=== PATIENT | female | born 1990 | race Caucasian/White ===

== ENCOUNTER 2023-09-10 12:05 | Outpatient (REF) | payer MEDICARE, MEDICAID, SELFPAY ==
[2023-09-10 13:21] LABS: MANUAL DIFF FLAG NO
--- NOTE | 2023-09-10 13:24 | ECG_ITS ---
Test Reason : T Blood Pressure : / mmHG Vent. Rate : 089 BPM Atrial Rate : 089 BPM P-R Int : 166 ms QRS Dur : 096 ms QT Int : 364 ms P-R-T Axes : 048 012 080 degrees QTc Int : 442 ms Normal sinus rhythm Nonspecific T wave abnormality Abnormal ECG No previous ECGs available Referred By: Joe Wilson Electronically Signed By:SUSANA SIMON MD
[2023-09-10 14:11] LABS: Basophils Percent Auto 0.3 % (0-2); Eosinophils Absolute Auto 0.4 X10*3/uL (0.0-0.4); Eosinophils Percent Auto 3.7 % (0-4); Hematocrit 43.7 % (37.0-47.0); Imm Gran Abs Auto 0.04 X10*3/uL (0.00-0.03); Imm Gran Pct Auto 0.3 % (0.0-0.4); Lymphocytes Absolute Auto 2.2 X10*3/uL (1.2-4.9); Lymphocytes Percent Auto 19.3 % (20-40); Mean Corpuscular Volume 93.8 fL (80.0-98.0); Mean Platelet Volume 9.9 fL (9.4-12.3); Monocytes Absolute Auto 0.4 X10*3/uL (0.1-1.2); Monocytes Percent Auto 3.3 % (2-11); Neutrophils Absolute Auto 8.4 x10*3/uL (2.0-8.3); Neutrophils Percent Auto 73.1 % (45-73); Platelet Count 307 X10*3/uL (160-400); Red Blood Count 4.66 X10*6/uL (4.20-5.50); Red Cell Distribution Width 15.1 % (11.0-16.0); White Blood Count 11.5 X10*3/uL (4.8-10.8)
[2023-09-10 15:01] LABS: Alanine Aminotransferase 34 U/L (0-31); Albumin Level 4.3 g/dL (3.5-5.0); Alkaline Phosphatase 118 U/L (39-117); Anion Gap 11 (12-20); Aspartate Amino Transferase 40 U/L (5-31); Bilirubin Total 0.5 mg/dL (0.0-1.0); Blood Urea Nitrogen 6 mg/dL (9-16); Carbon Dioxide 22 mmol/L (22-29); Chloride 107 mmol/L (96-108); Estimated Glomerular Filt Rate > 60; Glucose Random 104 mg/dL (60-115); Sodium 136 mmol/L (135-145); Total Protein 7.6 g/dL (6.5-8.0)
[2023-09-10 15:05] LABS: TSH reflex Free T4 2.53 uIU/mL (0.32-4.0)
== END 2023-09-10 12:06 | disposition home or self-care (01) ==
LOC: HO.LAB 12:05
PROVIDERS: PCP Internal Medicine; Visit Provider Psychiatry & Neurology Psychiatry
DX: Z01.818 Encounter for other preprocedural examination (principal); F31.4 Bipolar disorder, current episode depressed, severe, without psychotic features; F41.1 Generalized anxiety disorder; F43.10 Post-traumatic stress disorder, unspecified; Z79.899 Other long term (current) drug therapy
CPT/HCPCS: 36415; 80053; 84443; 85025; 93005; 99202

== ENCOUNTER 2023-09-10 12:05 | Outpatient (AMB) | payer MEDICARE, MEDICAID, SELFPAY ==
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
== END 2023-09-10 13:06 | disposition home or self-care (01) ==
LOC: HO.HOP 12:05
PROVIDERS: PCP Internal Medicine; Visit Provider Psychiatry & Neurology Psychiatry
DX: F31.4 Bipolar disorder, current episode depressed, severe, without psychotic features (principal); F43.10 Post-traumatic stress disorder, unspecified; I10 Essential (primary) hypertension
CPT/HCPCS: 99205

== ENCOUNTER → 2023-09-10 13:24 | Outpatient (BNV) | payer MEDICARE, MEDICAID, SELFPAY | PROVIDERS: PCP Internal Medicine; Visit Provider Internal Medicine Cardiovascular Disease | DX: R94.31 Abnormal electrocardiogram [ECG] [EKG] (principal) | CPT/HCPCS: 93010 ==

== ENCOUNTER 2023-09-19 08:07 | Day surgery (SDC) | payer MEDICARE, MEDICAID, SELFPAY ==
[2023-09-19] VITALS (8 sets, daily range): BP systolic 137–167; BP diastolic 84–108; PULSE 97–112; RESP 12–20; TEMP 36.4–37.5; O2SAT 92–97; BMI 47.1
[2023-09-19 08:30] LABS: UPreg QC Valid YES; Urine Pregnancy NEGATIVE (NEGATIVE)
--- NOTE | 2023-09-19 08:41 | HO.ANESPROP2 ---
[facility] Active Problems Active Problems: All Active Problems (Updated 09/11/23 @ 17:11 by Joe Wilson MD) Post traumatic stress disorder (PTSD) (Acute) Hypertension (Acute) Pre-op evaluation (Acute) Bipolar 1 disorder, depressed, severe (Acute) Past Medical History Medical History (Updated 09/11/23 @ 17:11 by Joe Wilson MD) Hypertension Family History Family history of problems with anesthesia: No Surgical History History of Problems with Anesthesia: No Social History Social History Advance Directives: No Advance Directives Information Provided: Yes Meds Allergies Allergy/AdvReac Type Severity Reaction Status Date / Time shellfish derived Allergy Severe Anaphylaxis Verified 09/10/23 12:54 Active Medications: Current Medications Lactated Ringer's (Lr) 1,000 mls @ 50 mls/hr IVCONT .Q20H JONATAN Scopolamine (Scopolamine 1.5 Mg Patch.Td.3) 1.5 mg TRANSDERMA PREOP ONE Stop: 09/19/23 08:41 Home Medications Medication Instructions Recorded Confirmed Last Taken Type amlodipine 10 mg tablet 10 mg PO DAILY 09/11/23 09/11/23 Unknown History cariprazine 4.5 mg capsule 4.5 mg PO DAILY 09/11/23 09/11/23 Unknown History (Vraylar) duloxetine 60 mg capsule,delayed 60 mg PO DAILY 09/11/23 09/11/23 Unknown History release lithium carbonate 300 mg mg PO 09/11/23 09/11/23 Unknown History tablet,extended release quetiapine 200 mg tablet mg PO TID 09/11/23 09/11/23 Unknown History clonazepam 1 mg tablet 1 mg PO TID 09/18/23 09/18/23 Unknown History Exam Height,Weight and Vital Signs: Height 5 ft 7 in Weight 136.531 kg Last Vital Signs Temp 97.5 F 09/19/23 08:27 Pulse 112 H 09/19/23 08:27 Resp 20 09/19/23 08:27 BP 147/93 H 09/19/23 08:27 Pulse Ox 96 09/19/23 08:27 O2 Del Method Room Air 09/19/23 08:27 Pertinent Lab Results Pertinent Lab Results: Laboratory Tests 09/19/23 08:15 Urine Test NEGATIVE Airway Mallampati Class: III TM Dist: >3cm Neck ROM: Full Heart: rrr Lungs: cta Assessment and Plan Assessment Anesthesia Assessment: Anesthesia Plan Discussed and Chart Reviewed Final Anesthetic Review Family History of Problems with Anesthesia: No History of Problems with Anesthesia: No NPO: Yes ASA Class: III Final Preanesthetic Review: No Changes in Pt Med Stat, Meds/Allgs Chart Reviewed and Consent Obtained/Reviewed Patient Risk: Intermediate Procedure Risk: Intermediate Anesthetic Plan Anesthetic Plan: GA Disposition: Standard PACU
[2023-09-19] MEDS: Scopolamine 1.5 MG PATCH.TD.3 TRANSDERMA (08:45)
--- NOTE | 2023-09-19 09:13 | MHC.SHP ---
Pre-Procedural Eval Section A - 24 Hr Update-Section A only Date of Service: 09/19/23 Changes since office visit: Yes Changes in Medication and Yes Patient answered all questions; No Cold of Flu in the past 2 weeks and No New Medical Problems The patient has been examined within 24 hours of the surgical procedure. The History & Physical has been completed within 30 days and I have reviewed it.: Yes Section B - Complete if H&P > 30 days Chief Complaint: Major depressive disorder, recurrent, severe with Details of Present Illness: no change in medical or cognitive status Relevant Social History: None Present Medications: see Short Stay Collaborative assessment History of Previous Operations: No relevant previous surgery (ect) Allergies: Allergies Allergy/AdvReac Type Severity Reaction Status Date / Time shellfish derived Allergy Severe Anaphylaxis Verified 09/10/23 12:54 Review of Systems Sugical H&P ROS: Negative: Cardiovascular and Respiratory and Yes, Specify: Constitution (fatigue clouding) and Psychiatric (depression passive si at times) Exam Surgical H&P Exam: Normal: Heart, Normal: Lungs and Normal: Neurological Plan Diagnosis/Plan: Unchanged I have reviewed the history and physical and performed a pertinent physical examination on my patient. No changes have occurred unless specified. Time Spent With Patient Time: Total time managing care of this patient today ____ minutes.
--- NOTE | 2023-09-19 10:16 | P.PCN_ITS ---
ECT Procedure Note Diagnosis/Treatment Date of Service: 09/19/23 Diagnosis: Bipolar disorder Current Treatment Number: 1 Interval Clinical Notes: pt able to give infirmed consent records reviewed from [facility] ;rosendaium carlosonapin held night prior required bilateral tx last yr at [facility] pt tolerated first ect but needs inc program 0.5 ? change BT required LMA number 4 post ect Time: Total time managing care of this patient today ____ minutes. ECT Settings Device: THYMATRON DGx Electrode Placement: Rt temporal/ Lt frontal Program/Pulse Width: 0.25 Energy Percent: 100 Seizure Duration By EEG (in seconds): 12 Medications Administration General Anesthetic: Methohexital (130) Muscle Relaxant: Succinylcholine (140) Ancillary Medications Analgesics: Torodol - Pre ECT Anti-emetics: Zofran - Pre ECT Airway Management Airway Management: LMA Treatment Recommendations Electrode Placement: Bitemporal Program/Pulse Width: 0.50 Energy Percent: 100
[2023-09-19] MEDS: Acetaminophen 325 MG TABLET 650 MG PO (10:19)
== END 2023-09-19 10:55 | disposition home or self-care (01) ==
PROVIDERS: PCP Internal Medicine; Visit Provider Psychiatry & Neurology Psychiatry
PROC: (CPT 90870; principal; 2023-09-19 10:00)
DX: F33.3 Major depressive disorder, recurrent, severe with psychotic symptoms (principal); F43.10 Post-traumatic stress disorder, unspecified; I10 Essential (primary) hypertension
CPT/HCPCS: 81025; 90870; J0330; J1885; J2250; J2405; J2704

== ENCOUNTER → 2023-09-19 08:07 | Outpatient (BNV) | payer MEDICARE, MEDICAID, SELFPAY | PROVIDERS: PCP Internal Medicine; Visit Provider Psychiatry & Neurology Psychiatry | DX: F33.3 Major depressive disorder, recurrent, severe with psychotic symptoms (principal) | CPT/HCPCS: 90870 ==

== ENCOUNTER 2023-09-22 05:52 | Day surgery (SDC) | payer MEDICARE, MEDICAID, SELFPAY ==
[2023-09-22] VITALS (7 sets, daily range): BP systolic 135–159; BP diastolic 88–107; PULSE 100–114; RESP 16–20; TEMP 36.4–37.1; O2SAT 94–97; BMI 47.1
--- NOTE | 2023-09-22 06:46 | P.CONAN_ITS ---
[facility] Active Problems Active Problems: All Active Problems (Updated 09/11/23 @ 17:11 by Joe Wilson MD) Post traumatic stress disorder (PTSD) (Acute) Hypertension (Acute) Pre-op evaluation (Acute) Bipolar 1 disorder, depressed, severe (Acute) Past Medical History Medical History (Updated 09/11/23 @ 17:11 by Joe Wilson MD) Hypertension Family History Family history of problems with anesthesia: No Surgical History History of Problems with Anesthesia: No Social History Social History Advance Directives: No Advance Directives Information Provided: Yes Meds Allergies Allergy/AdvReac Type Severity Reaction Status Date / Time shellfish derived Allergy Severe Anaphylaxis Verified 09/10/23 12:54 Home Medications Medication Instructions Recorded Confirmed Last Taken Type amlodipine 10 mg tablet 10 mg PO DAILY 09/11/23 09/11/23 Unknown History cariprazine 4.5 mg capsule 4.5 mg PO DAILY 09/11/23 09/11/23 Unknown History (Vraylar) duloxetine 60 mg capsule,delayed 60 mg PO DAILY 09/11/23 09/11/23 Unknown History release lithium carbonate 300 mg mg PO 09/11/23 09/11/23 Unknown History tablet,extended release quetiapine 200 mg tablet mg PO TID 09/11/23 09/11/23 Unknown History clonazepam 1 mg tablet 1 mg PO TID 09/18/23 09/18/23 Unknown History Exam Airway Mallampati Class: II (thick neck) TM Dist: >3cm Neck ROM: Full Heart: rrr Lungs: cta Assessment and Plan Assessment Anesthesia Assessment: Anesthesia Plan Discussed and Chart Reviewed Final Anesthetic Review Family History of Problems with Anesthesia: No History of Problems with Anesthesia: No NPO: Yes ASA Class: III Final Preanesthetic Review: No Changes in Pt Med Stat, Meds/Allgs Chart Reviewed and Consent Obtained/Reviewed Patient Risk: Intermediate Procedure Risk: Intermediate Anesthetic Plan Anesthetic Plan: GA Disposition: Standard PACU
--- NOTE | 2023-09-22 07:08 | MHC.SHP ---
Pre-Procedural Eval Section A - 24 Hr Update-Section A only Date of Service: 09/22/23 The patient is an INPATIENT: No Changes since office visit: No Cold of Flu in the past 2 weeks, No New Medical Problems, No Changes in Medication and No Patient answered all questions The patient has been examined within 24 hours of the surgical procedure. The History & Physical has been completed within 30 days and I have reviewed it.: Yes Section B - Complete if H&P > 30 days Chief Complaint: Major depressive disorder, recurrent, severe with Allergies: Allergies Allergy/AdvReac Type Severity Reaction Status Date / Time shellfish derived Allergy Severe Anaphylaxis Verified 09/10/23 12:54 Plan I have reviewed the history and physical and performed a pertinent physical examination on my patient. No changes have occurred unless specified. Time Spent With Patient Time: Total time managing care of this patient today ____ minutes.
--- NOTE | 2023-09-22 07:09 | HO.ECTPROC ---
ECT Procedure Note Diagnosis/Treatment Date of Service: 09/22/23 Diagnosis: Bipolar disorder Previous ECT Date: 09/19/23 Current Treatment Number: 2 Treatment: Series Interval Clinical Notes: The patient reported that she is still dysphoric, no changes on mental statuts. She complained of headache and muscle pain after the procedure. ECT done with bitemporal setting, no complications, she had a physical seizure for 12s, woke up well. I ordered Oxycodone 10 mg after the procedure when she woke up. Time: Total time managing care of this patient today __30__ minutes. ECT Settings Device: THYMATRON DGx Electrode Placement: Bitemporal Program/Pulse Width: 0.50 Energy Percent: 100 Seizure Duration By EEG (in seconds): 55 By Motor Observation (in seconds): 12 Medications Administration General Anesthetic: Methohexital (130) Muscle Relaxant: Succinylcholine (140) Ancillary Medications Analgesics: Torodol - Pre ECT Anti-emetics: Zofran - Pre ECT Miscillaneous Medications: Propofol (30) Airway Management Airway Management: LMA Treatment Recommendations No Changes Recommended: No change Notes: Probably she will need, on top of Succinylcoline, Roncuronium, she was not 100% relaxed, she had a physical seizure of 12 s but seizure activity unitl 56s. I am adding a dose of Oxycodone 10 mg after the procedure to prevent headaches. Pt Tolerated Procedure w/o Issue: Yes
[2023-09-22] MEDS: oxyCODONE HCl Immed Release 5 MG TABLET 10 MG PO (08:01)
[2023-09-22] MEDS: Scopolamine 1.5 MG PATCH.TD.3 TRANSDERMA (08:06)
== END 2023-09-22 08:39 | disposition home or self-care (01) ==
PROVIDERS: PCP Internal Medicine; Visit Provider Psychiatry & Neurology Psychiatry
PROC: (CPT 90870; principal; 2023-09-22 07:30)
DX: F31.32 Bipolar disorder, current episode depressed, moderate (principal); F43.10 Post-traumatic stress disorder, unspecified; I10 Essential (primary) hypertension; D72.829 Elevated white blood cell count, unspecified; R74.8 Abnormal levels of other serum enzymes; E78.5 Hyperlipidemia, unspecified; R73.03 Prediabetes; Z79.899 Other long term (current) drug therapy
CPT/HCPCS: 90870; J0330; J1885; J2405; J2704

== ENCOUNTER → 2023-09-22 05:52 | Outpatient (BNV) | payer MEDICARE, MEDICAID, SELFPAY | PROVIDERS: PCP Internal Medicine; Visit Provider Psychiatry & Neurology Psychiatry | DX: F33.3 Major depressive disorder, recurrent, severe with psychotic symptoms (principal) | CPT/HCPCS: 90870 ==

== ENCOUNTER 2023-09-24 05:54 | Day surgery (SDC) | payer MEDICARE, MEDICAID, SELFPAY ==
[2023-09-24] VITALS (7 sets, daily range): BP systolic 133–171; BP diastolic 96–107; PULSE 89–101; RESP 15–18; TEMP 36.6–36.7; O2SAT 95–97; BMI 47.1
--- NOTE | 2023-09-24 07:04 | HO.ANESPROP2 ---
[facility] Active Problems Active Problems: All Active Problems (Updated 09/11/23 @ 17:11 by Joe Wilson MD) Post traumatic stress disorder (PTSD) (Acute) Hypertension (Acute) Pre-op evaluation (Acute) Bipolar 1 disorder, depressed, severe (Acute) Past Medical History Medical History (Updated 09/11/23 @ 17:11 by Joe Wilson MD) Hypertension Family History Family history of problems with anesthesia: No Surgical History History of Problems with Anesthesia: No Social History Social History Advance Directives: No Advance Directives Information Provided: Yes Meds Allergies Allergy/AdvReac Type Severity Reaction Status Date / Time shellfish derived Allergy Severe Anaphylaxis Verified 09/10/23 12:54 Active Medications: Current Medications Lactated Ringer's (Lr) 1,000 mls @ 50 mls/hr IVCONT .Q20H JONATAN Home Medications Medication Instructions Recorded Confirmed Last Taken Type amlodipine 10 mg tablet 10 mg PO DAILY 09/11/23 09/11/23 Unknown History cariprazine 4.5 mg capsule 4.5 mg PO DAILY 09/11/23 09/11/23 Unknown History (Vraylar) duloxetine 60 mg capsule,delayed 60 mg PO DAILY 09/11/23 09/11/23 Unknown History release lithium carbonate 300 mg mg PO 09/11/23 09/11/23 Unknown History tablet,extended release quetiapine 200 mg tablet mg PO TID 09/11/23 09/11/23 Unknown History clonazepam 1 mg tablet 1 mg PO TID 09/18/23 09/18/23 Unknown History Exam Height,Weight and Vital Signs: Height 5 ft 8 in Weight 140.614 kg Last Vital Signs Temp 98.1 F 09/24/23 06:40 Pulse 92 09/24/23 06:40 Resp 15 09/24/23 06:40 BP 143/96 H 09/24/23 06:40 Pulse Ox 96 09/24/23 06:40 O2 Del Method Room Air 09/24/23 06:40 Airway Mallampati Class: II TM Dist: >3cm Neck ROM: Full Heart: rrr Lungs: cta Assessment and Plan Assessment Anesthesia Assessment: Anesthesia Plan Discussed and Chart Reviewed Final Anesthetic Review Family History of Problems with Anesthesia: No History of Problems with Anesthesia: No NPO: Yes ASA Class: III Final Preanesthetic Review: No Changes in Pt Med Stat, Meds/Allgs Chart Reviewed and Consent Obtained/Reviewed Patient Risk: Intermediate Procedure Risk: Intermediate Anesthetic Plan Anesthetic Plan: GA Disposition: Standard PACU
--- NOTE | 2023-09-24 07:42 | P.HPSUR_ITS ---
Pre-Procedural Eval Section A - 24 Hr Update-Section A only Date of Service: 09/24/23 The patient is an INPATIENT: No Changes since office visit: Yes Changes in Medication and Yes Patient answered all questions; No Cold of Flu in the past 2 weeks and No New Medical Problems Section B - Complete if H&P > 30 days Chief Complaint: bipolar dep severe Details of Present Illness: hx cycling current severe dep episode cymbalta stopp ed Relevant Social History: None Present Medications: see Short Stay Collaborative assessment Medical History: Significant History Allergies: Allergies Allergy/AdvReac Type Severity Reaction Status Date / Time shellfish derived Allergy Severe Anaphylaxis Verified 09/10/23 12:54 Review of Systems Sugical H&P ROS: Negative: Cardiovascular, Respiratory and Neurological and Yes, Specify: Constitution and Psychiatric (depressed mood ) Exam Surgical H&P Exam: Normal: Heart, Normal: Lungs and Normal: Neurological Exam Comment: no cognitive difficulties noted Plan Diagnosis/Plan: Unchanged I have reviewed the history and physical and performed a pertinent physical examination on my patient. No changes have occurred unless specified. Time Spent With Patient Time: Total time managing care of this patient today ____ minutes.
[2023-09-24] MEDS: Scopolamine 1.5 MG PATCH.TD.3 TRANSDERMA (07:51)
--- NOTE | 2023-09-24 08:07 | HO.ECTPROC ---
ECT Procedure Note Diagnosis/Treatment Date of Service: 09/24/23 Diagnosis: Bipolar disorder Previous ECT Date: 09/22/23 Current Treatment Number: 3 Treatment: Series Interval Clinical Notes: Patient no longer taking Cymbalta had some increased anxiety tremor. States she is tolerating ECT generally well some confusion sedation on the day of treatment but no enter treatment significant cognitive changes. Patient alert cooperative feels comfortable with the treatment question some improvement PLEASE NOTE SCOPOLAMINE PATCH USED LMA 4. Used Oxycodone 10 mg given post as per prior procedure Time: Total time managing care of this patient today __30__ minutes. ECT Settings Device: THYMATRON DGx Electrode Placement: Bitemporal Program/Pulse Width: 0.50 Energy Percent: 100 Seizure Duration By EEG (in seconds): 87 Medications Administration General Anesthetic: Methohexital (130) and Other Muscle Relaxant: Succinylcholine (140) and Rocuronium (5) Ancillary Medications Analgesics: Torodol - Pre ECT Anti-emetics: Zofran - Pre ECT Miscillaneous Medications: Propofol (30 plus 30) Airway Management Airway Management: LMA Treatment Recommendations Energy Percent: 70 Notes: Energy percentage can be decreased given length of seizure Pt Tolerated Procedure w/o Issue: Yes
[2023-09-24] MEDS: oxyCODONE HCl Immed Release 5 MG TABLET 10 MG PO (08:49)
== END 2023-09-24 09:33 | disposition home or self-care (01) ==
PROVIDERS: PCP Internal Medicine; Visit Provider Psychiatry & Neurology Psychiatry
PROC: (CPT 90870; principal; 2023-09-24 08:00)
DX: F31.4 Bipolar disorder, current episode depressed, severe, without psychotic features (principal); F41.9 Anxiety disorder, unspecified; F43.10 Post-traumatic stress disorder, unspecified; R25.1 Tremor, unspecified; I10 Essential (primary) hypertension; Z79.899 Other long term (current) drug therapy
CPT/HCPCS: 90870; J0330; J1596; J1805; J1885; J2405; J2704

== ENCOUNTER → 2023-09-24 05:54 | Outpatient (BNV) | payer MEDICARE, MEDICAID, SELFPAY | PROVIDERS: PCP Internal Medicine; Visit Provider Psychiatry & Neurology Psychiatry | DX: F33.3 Major depressive disorder, recurrent, severe with psychotic symptoms (principal) | CPT/HCPCS: 90870 ==

== ENCOUNTER 2023-09-26 12:52 | Day surgery (SDC) | payer MEDICARE, MEDICAID, SELFPAY ==
--- NOTE | 2023-09-26 13:21 | P.CONAN_ITS ---
[facility] Active Problems Active Problems: All Active Problems (Updated 09/11/23 @ 17:11 by Joe Wilson MD) Post traumatic stress disorder (PTSD) (Acute) Hypertension (Acute) Pre-op evaluation (Acute) Bipolar 1 disorder, depressed, severe (Acute) Past Medical History Medical History (Updated 09/11/23 @ 17:11 by Joe Wilson MD) Hypertension Family History Family history of problems with anesthesia: No Surgical History History of Problems with Anesthesia: No Social History Social History Advance Directives: No Advance Directives Information Provided: Yes Meds Allergies Allergy/AdvReac Type Severity Reaction Status Date / Time shellfish derived Allergy Severe Anaphylaxis Verified 09/10/23 12:54 Active Medications: Current Medications Lactated Ringer's (Lr) 1,000 mls @ 50 mls/hr IVCONT .Q20H [facility] Home Medications Medication Instructions Recorded Confirmed Last Taken Type amlodipine 10 mg tablet 10 mg PO DAILY 09/11/23 09/11/23 Unknown History cariprazine 4.5 mg capsule 4.5 mg PO DAILY 09/11/23 09/11/23 Unknown History (Vraylar) duloxetine 60 mg capsule,delayed 60 mg PO DAILY 09/11/23 09/11/23 Unknown History release lithium carbonate 300 mg mg PO 09/11/23 09/11/23 Unknown History tablet,extended release quetiapine 200 mg tablet mg PO TID 09/11/23 09/11/23 Unknown History clonazepam 1 mg tablet 1 mg PO TID 09/18/23 09/18/23 Unknown History Exam Airway Mallampati Class: II TM Dist: >3cm Neck ROM: Full Heart: rrr Lungs: cta Assessment and Plan Assessment Anesthesia Assessment: Anesthesia Plan Discussed and Chart Reviewed Final Anesthetic Review Family History of Problems with Anesthesia: No History of Problems with Anesthesia: No NPO: Yes ASA Class: III Final Preanesthetic Review: No Changes in Pt Med Stat, Meds/Allgs Chart Reviewed and Consent Obtained/Reviewed Patient Risk: Intermediate Procedure Risk: Intermediate Anesthetic Plan Anesthetic Plan: GA Disposition: Standard PACU
[2023-09-26 13:30] VITALS: BP 161/106; PULSE 100; RESP 17; TEMP 36.3; O2SAT 96; BMI 47.1
--- NOTE | 2023-09-26 14:15 | MHC.SHP ---
Pre-Procedural Eval Section A - 24 Hr Update-Section A only Date of Service: 09/26/23 The patient is an INPATIENT: No Changes since office visit: No Cold of Flu in the past 2 weeks, No New Medical Problems, No Changes in Medication and No Patient answered all questions The patient has been examined within 24 hours of the surgical procedure. The History & Physical has been completed within 30 days and I have reviewed it.: Yes Section B - Complete if H&P > 30 days Chief Complaint: Major depressive disorder, recurrent, severe with Allergies: Allergies Allergy/AdvReac Type Severity Reaction Status Date / Time shellfish derived Allergy Severe Anaphylaxis Verified 09/10/23 12:54 Plan I have reviewed the history and physical and performed a pertinent physical examination on my patient. No changes have occurred unless specified. Time Spent With Patient Time: Total time managing care of this patient today ____ minutes.
--- NOTE | 2023-09-26 14:16 | HO.ECTPROC ---
ECT Procedure Note Diagnosis/Treatment Date of Service: 09/26/23 Diagnosis: Bipolar disorder Previous ECT Date: 09/24/23 Current Treatment Number: 4 Treatment: Series Interval Clinical Notes: the patient reported mild improvement of dysphoria. she denies side effects with the previous ECT, no headache with the last procedure. ECT done as usual, bitemperal but we lowered the stimulus to 80% with a good result, seizure on 47 s. Woke up without any problems. Time: Total time managing care of this patient today _30___ minutes. ECT Settings Device: THYMATRON DGx Electrode Placement: Bitemporal Program/Pulse Width: 0.50 Energy Percent: 80 Seizure Duration By EEG (in seconds): 47 By Motor Observation (in seconds): 47 Medications Administration General Anesthetic: Methohexital (130) Muscle Relaxant: Succinylcholine (140) and Rocuronium (5) Ancillary Medications Analgesics: Torodol - Pre ECT Anti-emetics: Zofran - Pre ECT Miscillaneous Medications: Propofol Airway Management Airway Management: LMA Treatment Recommendations No Changes Recommended: No change Pt Tolerated Procedure w/o Issue: Yes
[2023-09-26] MEDS: Scopolamine 1.5 MG PATCH.TD.3 TRANSDERMA (14:24)
[2023-09-26 14:40] VITALS: BP 158/94; PULSE 100; RESP 16; TEMP 36.2; O2SAT 94
[2023-09-26 14:45] VITALS: BP 131/83; PULSE 106; RESP 17; O2SAT 96
[2023-09-26 14:50] VITALS: BP 161/88; PULSE 106; RESP 18; O2SAT 95
[2023-09-26 14:55] VITALS: BP 141/84; PULSE 102; RESP 16; O2SAT 96
[2023-09-26 15:11] VITALS: BP 160/97; PULSE 101; RESP 17; TEMP 36.6; O2SAT 96
== END 2023-09-26 15:17 | disposition home or self-care (01) ==
PROVIDERS: PCP Internal Medicine; Visit Provider Psychiatry & Neurology Psychiatry
PROC: (CPT 90870; principal; 2023-09-26 16:00)
DX: F31.4 Bipolar disorder, current episode depressed, severe, without psychotic features (principal); F41.9 Anxiety disorder, unspecified; F43.10 Post-traumatic stress disorder, unspecified; I10 Essential (primary) hypertension; Z79.899 Other long term (current) drug therapy
CPT/HCPCS: 90870; J0330; J1596; J1805; J1885; J2405; J2704

== ENCOUNTER → 2023-09-26 12:52 | Outpatient (BNV) | payer MEDICARE, MEDICAID, SELFPAY | PROVIDERS: PCP Internal Medicine; Visit Provider Psychiatry & Neurology Psychiatry | DX: F33.3 Major depressive disorder, recurrent, severe with psychotic symptoms (principal) | CPT/HCPCS: 90870 ==

== ENCOUNTER 2023-10-01 06:00 | Day surgery (SDC) | payer MEDICARE, MEDICAID, SELFPAY ==
[2023-10-01] VITALS (8 sets, daily range): BP systolic 136–159; BP diastolic 86–102; PULSE 94–108; RESP 17–20; TEMP 36.6–36.7; O2SAT 94–97; BMI 47.0
[2023-10-01] MEDS: Scopolamine 1.5 MG PATCH.TD.3 EAR-BEHIND (07:16)
--- NOTE | 2023-10-01 07:55 | MHC.SHP ---
Pre-Procedural Eval Section A - 24 Hr Update-Section A only Date of Service: 10/01/23 The patient is an INPATIENT: No Changes since office visit: Yes Changes in Medication and Yes Patient answered all questions; No Cold of Flu in the past 2 weeks and No New Medical Problems The patient has been examined within 24 hours of the surgical procedure. The History & Physical has been completed within 30 days and I have reviewed it.: Yes Section B - Complete if H&P > 30 days Chief Complaint: Major depressive disorder, recurrent, severe with Details of Present Illness: rapid cycling Allergies: Allergies Allergy/AdvReac Type Severity Reaction Status Date / Time shellfish derived Allergy Severe Anaphylaxis Verified 09/10/23 12:54 Review of Systems Sugical H&P ROS: Negative: Respiratory and Neurological and Yes, Specify: Psychiatric (rapid cycle) Exam Surgical H&P Exam: Normal: Heart, Normal: Lungs and Normal: Neurological (clear sensorium) Plan Diagnosis/Plan: Unchanged I have reviewed the history and physical and performed a pertinent physical examination on my patient. No changes have occurred unless specified. Time Spent With Patient Time: Total time managing care of this patient today ____ minutes.
--- NOTE | 2023-10-01 07:57 | HO.ECTPROC ---
ECT Procedure Note Diagnosis/Treatment Date of Service: 10/01/23 Diagnosis: Bipolar disorder Previous ECT Date: 09/24/23 Current Treatment Number: 5 Treatment: Series Interval Clinical Notes: the patient reported some improvement of dysphoria. The patient has been tolerating ECT no significant cognitive side effects some complaints of headache. She does describe intermittent rapid cycling and we did discuss trying to keep a mood log. . Time: Total time managing care of this patient today 30____ minutes. ECT Settings Device: THYMATRON DGx Electrode Placement: Bitemporal Program/Pulse Width: 0.50 Energy Percent: 100 Seizure Duration By EEG (in seconds): 114 Medications Administration General Anesthetic: Methohexital (130) Muscle Relaxant: Succinylcholine (140) and Rocuronium (5) Ancillary Medications Analgesics: Torodol - Pre ECT Anti-emetics: Zofran - Pre ECT Miscillaneous Medications: Propofol Airway Management Airway Management: LMA Treatment Recommendations Notes: LMA USED FOR UNCLEAR REASONS PT HAD BITE ON LMA THAT SHE TOLERATED PREVIOUSLY LAST TX WITH SIDE ADDITION OF SOFT BITE BLOCK ON EACH SIDE as able PT HAD BLEEDING FRONT TEETH INITIALLY WAS LATER EXAMINED BY ANESTHESIA WAS NOT FELT TO BE LOOSE BUT LATER BECAME CLEAR AFTER D/C 2 TEETH / were moved anteriorly spoke with mother and pt she was to see dentist. Discussed with anesthesia potential techniques to cont ect if needed Call placed to dr bailey referring psychiatrist. Pt and mother were quite upset regarding dental injury . Case discussed with anesthesia. Pt Tolerated Procedure w/o Issue: Yes
--- NOTE | 2023-10-01 08:01 | HO.ANESPROP2 ---
[facility] Active Problems Active Problems: All Active Problems (Updated 09/11/23 @ 17:11 by Joe Wilson MD) Post traumatic stress disorder (PTSD) (Acute) Hypertension (Acute) Pre-op evaluation (Acute) Bipolar 1 disorder, depressed, severe (Acute) Past Medical History Medical History (Updated 09/11/23 @ 17:11 by Joe Wilson MD) Hypertension Family History Family history of problems with anesthesia: No Surgical History History of Problems with Anesthesia: No Social History Social History Patient Tobacco Use Status: Never used Tobacco Advance Directives: No Advance Directives Information Provided: Yes Meds Allergies Allergy/AdvReac Type Severity Reaction Status Date / Time shellfish derived Allergy Severe Anaphylaxis Verified 09/10/23 12:54 Home Medications Medication Instructions Recorded Confirmed Last Taken Type amlodipine 10 mg tablet 10 mg PO DAILY 09/11/23 09/11/23 Unknown History cariprazine 4.5 mg capsule 4.5 mg PO DAILY 09/11/23 09/11/23 Unknown History (Vraylar) duloxetine 60 mg capsule,delayed 60 mg PO DAILY 09/11/23 09/11/23 Unknown History release lithium carbonate 300 mg mg PO 09/11/23 09/11/23 Unknown History tablet,extended release quetiapine 200 mg tablet mg PO TID 09/11/23 09/11/23 Unknown History clonazepam 1 mg tablet 1 mg PO TID 09/18/23 09/18/23 Unknown History Exam Height,Weight and Vital Signs: Height 5 ft 7 in Weight 136.078 kg Last Vital Signs Temp 97.8 F 10/01/23 06:23 Pulse 105 H 10/01/23 06:23 Resp 20 10/01/23 06:23 BP 159/102 H 10/01/23 06:23 Pulse Ox 96 10/01/23 06:23 O2 Del Method Room Air 10/01/23 06:23 Airway Mallampati Class: III TM Dist: >3cm Denture: Upper Assessment and Plan Assessment Anesthesia Assessment: Anesthesia Plan Discussed and Chart Reviewed Final Anesthetic Review Family History of Problems with Anesthesia: No History of Problems with Anesthesia: No NPO: Yes ASA Class: III Final Preanesthetic Review: No Changes in Pt Med Stat, Meds/Allgs Chart Reviewed, Consent Obtained/Reviewed and Anes Risks/Benef Reviewed Patient Risk: Intermediate Procedure Risk: Intermediate Anesthetic Plan Anesthetic Plan: GA Disposition: Standard PACU
[2023-10-01] MEDS: Acetaminophen 325 MG TABLET 650 MG PO (09:24)
[2023-10-01] MEDS: oxyCODONE HCl Immed Release 5 MG TABLET 10 MG PO (09:25)
== END 2023-10-01 10:03 | disposition home or self-care (01) ==
PROVIDERS: PCP Internal Medicine; Visit Provider Psychiatry & Neurology Psychiatry
PROC: (CPT 90870; principal; 2023-10-01 07:30)
DX: F31.4 Bipolar disorder, current episode depressed, severe, without psychotic features (principal); F41.9 Anxiety disorder, unspecified; F43.10 Post-traumatic stress disorder, unspecified; I10 Essential (primary) hypertension; Z79.899 Other long term (current) drug therapy
CPT/HCPCS: 90870; J0330; J1885; J2405; J2704

== ENCOUNTER → 2023-10-01 06:00 | Outpatient (BNV) | payer MEDICARE, MEDICAID, SELFPAY | PROVIDERS: PCP Internal Medicine; Visit Provider Psychiatry & Neurology Psychiatry | DX: F33.3 Major depressive disorder, recurrent, severe with psychotic symptoms (principal) | CPT/HCPCS: 90870 ==